=== PATIENT | female | born 1990 | race Caucasian/White ===

== ENCOUNTER 2017-07-26 07:52 | Emergency (ER) | payer BC ==
[2017-07-26 07:58] VITALS: BP 128/82
--- NOTE | 2017-07-26 08:46 | UC ---
Throat Pain/Nasal Antione HPI - HPI Summary HPI Summary: uri symptoms for 2 weeks, today awoke with sore throat, has had some urinary frequency a few days ago and has some flank discomfort with a history of renal colic-- - History of Current Complaint Hx Obtained From: Patient Hx Last Menstrual Period: current ?: No Onset/Duration: Gradual Onset, Lasting Days, Worse Since - today had a sore throat Severity: Moderate Pain Intensity: 5 Pain Scale Used: 0-10 Numeric Cough: None <America Grant - Last Filed: 07/26/17 08:40> <Silva Herrmann - Last Filed: 07/26/17 09:08> - History of Current Complaint Chief Complaint: UCRespiratory Stated Complaint: SORE THROAT, AND HEADACHE Time Seen by Provider: 07/26/17 08:39 - Allergies/Home Medications Allergies/Adverse Reactions: Allergies Allergy/AdvReac Type Severity Reaction Status Date / Time No Known Allergies Allergy Verified 07/14/16 11:51 PMH/Surg Hx/FS Hx/Imm Hx Previously Healthy: No Endocrine History: Hypothyroidism GI/ History: Kidney Stones - Surgical History Surgical History: None - Family History Known Family History: Positive: Diabetes - father, grandfather Negative: Hypertension - Social History Occupation: Employed Full-time Lives: With Family Alcohol Use: Occasionally Substance Use Type: None Smoking Status (MU): Never Smoked Tobacco Have You Smoked in the Last Year: No <America Grant - Last Filed: 07/26/17 08:40> Review of Systems Constitutional: Negative Skin: Negative Eyes: Negative ENT: Sore Throat Respiratory: Cough Cardiovascular: Negative Gastrointestinal: Negative Genitourinary: Frequency - now resolved, Other - some left flank pain Motor: Negative Neurovascular: Negative Musculoskeletal: Negative Neurological: Negative Psychological: Negative Is Patient Immunocompromised?: No All Other Systems Reviewed And Are Negative: Yes <America Grant - Last Filed: 07/26/17 08:40> Physical Exam Triage Information Reviewed: Yes Appearance: Well-Appearing, No Pain Distress, Well-Nourished Vital Signs: Initial Vital Signs Temp 97.8 F 07/26/17 07:54 Pulse 102 07/26/17 07:54 Resp 18 07/26/17 07:54 BP 128/82 07/26/17 07:54 Pulse Ox 98 07/26/17 07:54 Vital Signs Reviewed: Yes Eye Exam: Normal Eyes: Positive: Conjunctiva Clear ENT Exam: Normal ENT: Positive: Normal ENT inspection, Hearing grossly normal, Pharynx normal, TMs normal, Uvula midline. Negative: Nasal congestion, Nasal drainage, Tonsillar swelling, Tonsillar exudate, Muffled voice, Hoarse voice, Sinus tenderness Dental Exam: Normal Neck exam: Normal Neck: Positive: Supple, Nontender, No Lymphadenopathy Respiratory Exam: Normal Respiratory: Positive: Chest non-tender, Lungs clear, Normal breath sounds, No respiratory distress, No accessory muscle use Cardiovascular Exam: Normal Cardiovascular: Positive: RRR, No Murmur, Pulses Normal, Brisk Capillary Refill Abdominal Exam: Normal Abdomen Description: Positive: Nontender, No Organomegaly, Soft, CVA Tenderness (L) Bowel Sounds: Positive: Present Musculoskeletal Exam: Normal Musculoskeletal: Positive: Strength Intact, ROM Intact, No Edema Neurological Exam: Normal Neurological: Positive: Alert, Muscle Tone Normal Psychological Exam: Normal Psychological: Positive: Normal Response To Family Skin Exam: Normal <America Grnat - Last Filed: 07/26/17 08:40> Vital Signs: Initial Vital Signs Temp 97.8 F 07/26/17 07:54 Pulse 102 07/26/17 07:54 Resp 18 07/26/17 07:54 BP 128/82 07/26/17 07:54 Pulse Ox 98 07/26/17 07:54 <Silva Herrmann - Last Filed: 07/26/17 09:08> Diagnostics - Laboratory Diagnostic Studies Completed/Ordered: ua-trace leukoesterace +3 blood ( currently having menses) strep (-) <America Grant - Last Filed: 07/26/17 08:40> Throat Pain/Nasal Course/Dx - Course Course Of Treatment: patient understands we cannot differentiate bllod in urine from renal colic or menses with out a straight cath specimen and ct---patient refuses both perfers to increase fluids and follow with pcp or return for increase pain fever chills nausea vomting, RST (-) tylenol ibuprofen for pain - Differential Dx/Diagnosis Provider Diagnoses: Hematuria, Viral URI <America Grant - Last Filed: 07/26/17 08:40> Discharge <America Grant - Last Filed: 07/26/17 08:40> <Silva Herrmann - Last Filed: 07/26/17 09:08> - Discharge Plan Condition: Stable Disposition: HOME Patient Education Materials: Renal Colic (ED), Viral Syndrome (ED) Referrals: Carlene Georges MD [Primary Care Provider] - 2 Days Attestation Statement User Type: Provider - I was available for consult. This patient was seen by the VEE. The patient was not presented to, seen by, or examined by me. -El <Silva Herrmann - Last Filed: 07/26/17 09:08>
== END 2017-07-26 09:08 | disposition home or self-care (01) ==
LOC: UCEAST 07:52
DX: R31.9 Hematuria, unspecified (principal); J06.9 Acute upper respiratory infection, unspecified
CPT/HCPCS: 81003; 87086; 87651; 99211; G0463

== ENCOUNTER 2019-05-01 10:31 | Emergency (ER) | payer BC ==
--- OUTSIDE RECORDS SUMMARY | 2019-05-01 10:38 | XMS REPORT | Continuity of Care Document ---
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 Payers Date Identification Numbers Payment Provider Subscriber Effective: Policy Number: [id number] [facility] Paula Hanna 2014 PayID: [id number] [address] [address] [place] [address] Problems Active Problems Provider Date Generalized anxiety disorder Eduarda Perrin PA-C Onset: 05/08/2015 Depressive disorder Eduarda Perrin PA-C Onset: 05/08/2015 Major depressive disorder, single Eduarda Perrin PA-C Onset: 05/23/2015 episode, unspecified Chronic interstitial cystitis Antonia Mccallum, [facility]- Onset: 05/30/2016 Abnormal cervical Papanicolaou smear Lelo Russo MD Onset: 05/30/2016 Hypothyroidism Carlene Georges MD Onset: 04/05/2019 Family History Date Family Member(s) Observation Comments Father Colitis Father Diabetes Mother Hypertension First Brother No Current Problems Paternal Grandfather Diabetes Paternal Grandfather due to Skin Cancer () Paternal Grandfather [place] Paternal Grandfather Dementia Paternal Grandmother Heart Disease Maternal Grandfather Diabetes Maternal Grandfather due to Cancer () Maternal Grandfather AK Maternal Grandfather Dementia Maternal Grandmother Breast Cancer Maternal Grandmother Hypertension Maternal Grandmother Gastroesophageal Reflux Disease (GERD) Social History Type Date Description Comments Sex Unknown Education Highest Level Completed, Master's Degree Marital Status Legal Status: Lives With Spouse 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 04/18/2015 20mg by mouth MD José Manuel Capsules F32.89 Florajen Acidophilus Capsules 2 po qd Unknown History Medications Erythromycin apply 1/2 inch 3.500gm Rashid Humphreys 01/15/2019 - 5mg/GM to right eye MD Hal 01/22/2019 Ointment four times a day x 7 days Synthroid 1 by mouth 90tabs E03.8 Carlene Barry 09/05/2018 - 88mcg Tablets every day MD José Manuel 11/02/2018 Doxycycline Hyclate 1 by mouth 20caps N61.0 Chip Reed 08/26/2018 - twice a day x DO Ani 09/05/2018 100mg Capsules 10 days Dicloxacillin Sodium 1 capsule four 40caps N61.0 Carlene Barry 08/12/2018 - times a day x MD José Manuel 08/22/2018 500mg Capsules 10 days Augmentin one by mouth 20tabs N61.0 Rashid Humphreys 07/27/2018 - 875-125mg twice a day x MD Hal 08/06/2018 Tablets 10 days Diflucan 1 by mouth at 2tabs N61.0 Rashid Humphreys 07/27/2018 - 150mg Tablets onset,january MD Hal 07/29/2018 repeat in 3 days as needed Macrodantin 1 by mouth two 20caps Randy Reed 06/20/2016 - 100mg times a day x MD Daily 06/30/2016 Capsules 10 days Ferrous Sulfate 1 by mouth otc D64.9 Lelo Russo, 08/15/2015 - every day 06/01/2016 325(65Fe) mg Tablets Cipro 1 by mouth 14tabs R35.0 Lelo Russo 07/09/2015 - 500mg Tablets twice a day x 7 07/16/2015 days Fluoxetine HCL 1 by mouth 90caps F41.1 Carlene Barry 05/08/2015 - 10mg every day along MD José Manuel 04/05/2019 Capsules with 20mg capsule to equal 30mg daily F32.89 Fluoxetine HCL 1 by mouth 30caps 300.02 Rei Cordova 04/03/2015 - 10mg every day MD YAHAIRA 04/18/2015 Capsules Xanax 1-2 by mouth 60tabs F41.1 Lelo Russo 04/03/2015 - 0.25mg Tablets once a day as 06/01/2016 needed Synthroid 1 by mouth 30tabs E03.8 Lelo Russo, - 50mcg Tablets every day 06/01/2016 Fluconazole 1 po weekly 616.10 Lilliana Hall PA - 200mg Tablets 04/03/2015 Phenazopyridine HCL as needed for 595.1 Lilliana Hall PA - 200mg flares 06/01/2016 Tablets Vitamin D 4 by mouth Unknown - 1000Unit Tablets every day 06/01/2016 Multivitamins 1 by mouth D64.9 Unknown - Capsules every day 06/01/2016 Synthroid 1 by mouth 90tabs E03.8 Carlene Almanza. - 100mcg Tablets every day MD José Manuel 09/05/2018 Vitamins Plus otc Unknown - Low Iron 03/23/2017 27-1mg Tablets Florajen Acidophilus Unknown - 06/01/2016 Capsules Immunizations CPT Code Status Date Vaccine Lot # [id number] Given 02/15/2018 Adacel - Tdap [facility] [id number] 09/14 71186 Refused 09/02/2018 Flu, Multi-Dose Vial W/Preservative (Age 3 Yrs And Older)Quad 0.5 Vital Signs Date Vital Result Comment 04/05/2019 11:30am BP Systolic 110 mmHg BP Diastolic 68 mmHg Heart Rate 66 /min Body Temperature 97.8 F Respiratory Rate 14 /min Weight 148.00 lb Weight 67.133 kg Height 65.5 inches 5'5.50" BMI (Body Mass Index) 24.3 kg/m2 01/15/2019 11:43am BP Systolic 106 mmHg BP Diastolic 60 mmHg Heart Rate 84 /min Body Temperature 98.5 F Respiratory Rate 16 /min Weight 147.00 lb Weight 66.679 kg Height 65.5 inches 5'5.50" BMI (Body Mass Index) 24.1 kg/m2 09/02/2018 2:58pm BP Systolic 116 mmHg BP Diastolic 66 mmHg Heart Rate 74 /min Body Temperature 98.7 F Respiratory Rate 14 /min Weight 155.25 lb Weight 70.421 kg Height 65.5 inches 5'5.50" BMI (Body Mass Index) 25.4 kg/m2 O2 % BldC Oximetry 99 % 07/27/2018 2:38pm BP Systolic 100 mmHg BP Diastolic 70 mmHg Heart Rate 11 /min Body Temperature 98.3 F Respiratory Rate 12 /min Weight 163.00 lb Weight 73.937 kg Height 65.5 inches 5'5.50" BMI (Body Mass Index) 26.7 kg/m2 07/25/2018 9:25am BP Systolic 98 mmHg BP Diastolic 68 mmHg Heart Rate 76 /min Body Temperature 98.6 F Respiratory Rate 14 /min Weight 165.00 lb Weight 74.844 kg Height 65.5 inches 5'5.50" BMI (Body Mass Index) 27.0 kg/m2 11/01/2017 1:59pm BP Systolic 122 mmHg BP Diastolic 68 mmHg Heart Rate 72 /min Body Temperature 97.7 F Respiratory Rate 16 /min Weight 152.00 lb Weight 68.947 kg 03/23/2017 5:59pm BP Systolic 110 mmHg BP Diastolic 72 mmHg Heart Rate 76 /min Body Temperature 98.2 F Respiratory Rate 14 /min Weight 152.00 lb Weight 68.947 kg Height 65.5 inches 5'5.50" BMI (Body Mass Index) 24.9 kg/m2 06/20/2016 12:18pm BP Systolic 118 mmHg BP Diastolic 64 mmHg Heart Rate 88 /min Body Temperature 98.0 F Respiratory Rate 20 /min Weight 173.00 lb Weight 78.473 kg Height 65.5 inches 5'5.50" BMI (Body Mass Index) 28.3 kg/m2 06/01/2016 6:49pm BP Systolic 118 mmHg BP Diastolic 80 mmHg Heart Rate 82 /min Body Temperature 97.7 F Respiratory Rate 16 /min Weight 170.00 lb Weight 77.112 kg Height 65.5 inches 5'5.50" BMI (Body Mass Index) 27.9 kg/m2 07/09/2015 6:53pm BP Systolic 116 mmHg BP Diastolic 70 mmHg Heart Rate 82 /min Body Temperature 98.7 F Respiratory Rate 16 /min Weight 133.00 lb Weight 60.329 kg Height 65.5 inches 5'5.50" BMI (Body Mass Index) 21.8 kg/m2 05/23/2015 7:57pm BP Systolic 102 mmHg BP Diastolic 80 mmHg Heart Rate 80 /min Body Temperature 98.1 F Respiratory Rate 14 /min Weight 129.00 lb Weight 58.514 kg Height 65.5 inches 5'5.50" BMI (Body Mass Index) 21.1 kg/m2 05/08/2015 7:25pm BP Systolic 100 mmHg BP Diastolic 62 mmHg Heart Rate 76 /min Body Temperature 97.7 F Respiratory Rate 14 /min Weight 129.00 lb Weight 58.514 kg Height 65.5 inches 5'5.50" BMI (Body Mass Index) 21.1 kg/m2 04/18/2015 8:03pm BP Systolic 100 mmHg BP Diastolic 80 mmHg Heart Rate 72 /min Body Temperature 98.3 F Respiratory Rate 18 /min Weight 123.00 lb Weight 55.793 kg Height 65.5 inches 5'5.50" BMI (Body Mass Index) 20.2 kg/m2 04/11/2015 8:08pm BP Systolic 104 mmHg BP Diastolic 80 mmHg Heart Rate 70 /min Body Temperature 98.1 F Respiratory Rate 12 /min Weight 120.00 lb Weight 54.432 kg Height 65.5 inches 5'5.50" BMI (Body Mass Index) 19.7 kg/m2 04/03/2015 3:32pm BP Systolic 122 mmHg BP Diastolic 80 mmHg Heart Rate 68 /min Body Temperature 98.0 F Respiratory Rate 12 /min Weight 122.00 lb Weight 55.339 kg Height 65.5 inches 5'5.50" BMI (Body Mass Index) 20.0 kg/m2 11/07/2014 2:37pm BP Systolic 100 mmHg BP Diastolic 60 mmHg Heart Rate 76 /min Body Temperature 98.2 F Respiratory Rate 12 /min Weight 125.00 lb Weight 56.700 kg Height 65.5 inches 5'5.50" BMI (Body Mass Index) 20.5 kg/m2 10/29/2014 9:02am BP Systolic 102 mmHg BP Diastolic 70 mmHg Heart Rate 60 /min Body Temperature 98.2 F Respiratory Rate 14 /min Weight 126.00 lb Weight 57.154 kg Height 65.5 inches 5'5.50" BMI (Body Mass Index) 20.6 kg/m2 Results Test Date Facility Test Result H/L Range Note Laboratory test finding 04/05/2019 [facility] TSH 2.211 uIU/mL 0.350- 4.940 CBC/Automated 04/05/2019 [facility] WBC 5.28 k/uL 4.60-10.20 Differential % Neut 49.3 % 37.0-80.0 Abs Neut 2.60 2.00-7.50 % Lymphs 31.7 % 10.0-50.0 Abs Lymphs 1.67 K/UL 1.20-4.80 % Monos 12.60 % High 0.00-12.00 Abs Monos 0.665 0.000-0.900 % Eos 4.37 % 0.00-7.00 Abs Eos 0.231 0.000-0.700 % Baso 2.07 % 0.00-4.00 Abs Basos 0.109 0.000-0.200 RBC 4.75 m/uL 4.04-6.13 Hemoglobin 11.3 g/dL Low 12.2-18.1 Hematocrit 35.2 % Low 37.7-47.0 MCV 74.1 Indices con <SEE NOTE> fL Low 80.0-97.0 1 MCH 23.8 pg Low 27.0-31.2 MCHC 32.1 g/dL 31.8-35.4 RDW 14.8 % 11.6-14.8 Platelet 328 K/uL 142-424 MPV 6.0 fL 0.0-99.9 Comprehensive Metabolic 04/05/2019 [facility] Glucose 81.00 mg/dL 70.00- 110.00 Panel Urea Nitrogen 16 mg/dL 7-19 Creatinine 0.7 mg/dL 0.6-1.1 GFR 97.40 mL/min 2 Sodium 136 mmol/L 136-145 Potassium 4.5 mmol/L 3.5-5.1 Chloride 106 mmol/L 98-107 Total Protein 7.5 g/dL 6.4-8.3 Alb P 4.00 g/dL 3.30-5.00 Alanine Aminotransferase 9 U/L 0-55 Aspartate Aminotransferase 15 U/L 5-34 Alkaline Phosphatase 90 U/L 40-150 Carbon Dioxide 22.00 mmol/L 22.00-31.00 Albumin/Globulin 1.14 Ratio Osmolality 282.21 275.00-295.00 Calcium 9.20 mg/dL 8.90-10.40 Total Bilirubin 0.4 mg/dL 0.2-1.2 Globulin 3.50 2.30-4.20 BUN/Creatinine 21.62 Ratio High 10.00-20.00 Laboratory test finding 12/13/2018 [facility] TSH 1.418 uIU/mL 0.350- 4.940 CBC/Automated Differential 10/21/2018 [facility] WBC 6.46 k/uL 4.60- 10.20 Alison 3.80 2.00-7.50 %N 58.8 % 37.0-80.0 Lym 1.55 K/UL 1.20-4.80 %L 24.0 % 10.0-50.0 Refugio 0.635 0.000-0.900 %M 9.83 % 0.00-12.00 Eos 0.372 0.000-0.700 %E 5.76 % 0.00-7.00 Baso 0.099 0.000-0.200 %B 1.53 % 0.00-4.00 RBC 5.30 m/uL 4.04-6.13 Hemoglobin 11.7 g/dL Low 12.2-18.1 Hematocrit 39.1 % 37.7-47.0 MCV 73.7 Indices con <SEE NOTE> fl Low 80.0-97.0 3 MCH 22.1 pg Low 27.0-31.2 MCHC 29.9 g/dL Low 31.8-35.4 RDW 18.2 % High 11.6-14.8 PLT 385 K/uL 142-424 MPV 6.5 fL 0.0-99.9 Laboratory test finding 10/21/2018 [facility] TSH 0.105 uIU/mL Low 0.350- 4.940 Laboratory test finding 09/02/2018 [facility] TSH 0.069 uIU/mL Low 0.350- 4.940 CBC/Automated Differential 09/02/2018 [facility] WBC 6.50 k/uL 4.60- 10.20 Alison 3.94 2.00-7.50 %N 60.6 % 37.0-80.0 Lym 1.56 K/UL 1.20-4.80 %L 24.0 % 10.0-50.0 Refugio 0.598 0.000-0.900 %M 9.20 % 0.00-12.00 Eos 0.317 0.000-0.700 %E 4.87 % 0.00-7.00 Baso 0.089 0.000-0.200 %B 1.36 % 0.00-4.00 RBC 4.47 m/uL 4.04-6.13 Hemoglobin 10.0 g/dL Low 12.2-18.1 Hematocrit 33.0 % Low 37.7-47.0 MCV 73.8 fl Low 80.0-97.0 MCH 22.4 pg Low 27.0-31.2 MCHC 30.4 g/dL Low 31.8-35.4 RDW 15.6 % High 11.6-14.8 PLT 390 K/uL 142-424 MPV 6.3 fL 0.0-99.9 Comprehensive Metabolic 09/02/2018 [facility] Glucose 94.00 mg/dL 70.00- 110.00 Panel Urea Nitrogen 16 mg/dL 7-19 CreaC 0.8 mg/dL 0.6-1.1 GFR 96.28 mL/min 4 Na-C 141 mmol/L 136-145 K-C 4.1 mmol/L 3.5-5.1 Cl-C 109 mmol/L High 98-107 Total Protein 7.3 g/dL 6.4-8.3 Alb P 3.70 g/dL 3.30-5.00 Alanine Aminotransferase 15 U/L 0-55 Aspartate Aminotransferase 17 U/L 5-34 Alkaline Phosphatase 99 U/L 40-150 Carbon Dioxide 21.00 mmol/L Low 22.00-31.00 BUN/CR 21.33 High 10.00-20.00 A/G 2.03 1.46-2.46 Osmo 292.94 275.00-295.00 CaC 9.30 mg/dL 8.90-10.40 Total Bilirubin 0.3 mg/dL 0.2-1.2 Glob 2 3.60 2.30-4.20 Laboratory test finding 11/08/2017 [facility] Progesterone 23.90 ng/mL 5 Laboratory test finding 11/01/2017 [facility] FT4_6 1.05 ng/dL 0.70- 1.48 TSH 1.941 uIU/mL 0.350-4.940 B-hCG 11044.93 mIU/mL Comprehensive Metabolic 03/23/2017 [facility] Glucose 81.00 mg/dL 70.00- 110.00 Panel Urea Nitrogen 15 mg/dL 7-19 CreaC 0.8 mg/dL 0.6-1.1 GFR 88.98 mL/min 6 Na-C 138 mmol/L 136-145 K-C 4.3 mmol/L 3.5-5.1 Cl-C 104 mmol/L 98-107 Total Protein 8.1 g/dL 6.4-8.3 Alb P 3.90 g/dL 3.30-5.00 Alanine Aminotransferase 11 U/L 0-55 Aspartate Aminotransferase 15 U/L 5-34 Alkaline Phosphatase 109 U/L 40-150 Carbon Dioxide 23.00 mmol/L 22.00-31.00 BUN/CR 18.52 10.00-20.00 A/G 1.93 1.46-2.46 Osmo 285.86 275.00-295.00 CaC 9.50 mg/dL 8.90-10.40 Total Bilirubin 0.3 mg/dL 0.2-1.2 Glob 2 4.20 2.30-4.20 Laboratory test finding 03/23/2017 [facility] TSH 1.425 uIU/mL 0.350- 4.940 Urinalysis/Microscopic 06/20/2016 [facility] Color Yellow Appear Clear Clear Leuk Trace Negative Nitrite Negative Negative Urobil 0.2 E.U./dL 0.2-1.0 Protein Negative Negative pH 7.0 5.0-8.5 Blood 2+ Abnormal Negative S.G. 1.015 1.005-1.025 Ketone Negative Negative Bili Negative Negative Glu Negative Negative U-WBC 6-10 Abnormal 0-2 U-RBC 10-20 0-2 Bacteria 1+ Abnormal Negative Epi Cells 10-20 Abnormal Laboratory test finding 06/20/2016 [facility] Urine Culture Comment 7 Laboratory test finding 07/09/2015 [facility] Urine Culture Comment 8 , 9 Urinalysis/Microscopic 07/09/2015 [facility] Color [place] Appear Clear Clear Leuk 1+ Abnormal Negative Nitrite Positive Negative Urobil 1.0 E.U./dL 0.2-1.0 Protein Trace Abnormal Negative pH 7.0 5.0-8.5 Blood 1+ Abnormal Negative S.G. 1.010 1.005-1.025 Ketone Negative Negative Bili Negative Negative Glu Trace Abnormal Negative U-WBC 20-40 0-2 Bacteria 2+ Abnormal Negative Epi Cells 3-5 Abnormal Laboratory test finding 07/09/2015 [facility] HCG-urine Negative Negative Laboratory test finding 07/09/2015 [facility] Iron 89.00 g/dL 25.00- 156.00 Iron Binding Capacity 353 g/dL 250-450 10 Ferritin 17.3 ng/ml 10.0-291.0 11 Vitamin B12 Arch 563.00 pg/mL 213.00-816.00 Folic Acid 11.5 ng/ml 12 Basic Metabolic Panel 07/09/2015 [facility] Glucose 80.00 mg/dL 70.00- 110.00 Na-C 135 mmol/L Low 136-145 K-C 4.3 mmol/L 3.5-5.1 Cl-C 103 mmol/L 98-107 Carbon Dioxide 25.00 mmol/L 22.00-31.00 Urea Nitrogen 10 mg/dL 7-19 GFR 112.14 mL/min 13 CreaC 0.7 mg/dL 0.6-1.1 BUN/CR 14.93 10.00-20.00 Osmo 278.02 275.00-295.00 CaC 9.00 mg/dL 8.90-10.40 CBC/Automated Differential 07/09/2015 [facility] WBC 7.48 k/uL 4.60- 10.20 Alison 4.74 2.00-7.50 %N 63.4 % 37.0-80.0 Lym 1.85 K/UL 1.20-4.80 %L 24.7 % 10.0-50.0 Refugio 0.529 0.000-0.900 %M 7.07 % 0.00-12.00 Eos 0.267 0.000-0.700 %E 3.57 % 0.00-7.00 Baso 0.094 0.000-0.200 %B 1.26 % 0.00-4.00 RBC 4.18 m/uL 4.04-6.13 Hemoglobin 11.8 g/dL Low 12.2-18.1 Hematocrit 36.2 % Low 37.7-47.0 MCV 86.6 fl 80.0-97.0 MCH 28.2 pg 27.0-31.2 MCHC 32.6 g/dL 31.8-35.4 RDW 12.4 % 11.6-14.8 PLT 267 K/uL 142-424 MPV 5.8 fL 0.0-99.9 TSH+Free T4 07/09/2015 [facility] TSH 2.879 uIU/mL 0.350-4.940 FT4_6 0.97 ng/dL 0.70-1.48 Laboratory test 11/07/2014 [facility] Urine Culture No growth. 14 finding CBC/Automated 10/29/2014 [facility] WBC 6.23 k/uL 4.60-10.20 15 Differential Alison 4.48 2.00-7.50 %N 71.8 % 37.0-80.0 Lym 1.09 K/UL Low 1.20-4.80 %L 17.4 % 10.0-50.0 Refugio 0.498 0.000-0.900 %M 7.99 % 0.00-12.00 Eos 0.105 0.000-0.700 %E 1.68 % 0.00-7.00 Baso 0.065 0.000-0.200 %B 1.04 % 0.00-4.00 RBC 4.27 m/uL 4.04-6.13 Hemoglobin 12.4 g/dL 12.2-18.1 Hematocrit 36.9 % Low 37.7-47.0 MCV 86.4 fl 80.0-97.0 MCH 29.0 pg 27.0-31.2 MCHC 33.6 g/dL 31.8-35.4 RDW 12.0 % 11.6-14.8 PLT 248 K/uL 142-424 MPV 5.7 fL 0.0-99.9 Comprehensive Metabolic 10/29/2014 [facility] Glucose 74.00 mg/dL 70.00- 110.00 Panel Urea Nitrogen 10 mg/dL 7-19 CreaC 0.7 mg/dL 0.6-1.1 GFR 108.97 mL/min 16 Na-C 137 mmol/L 136-145 K-C 4.0 mmol/L 3.5-5.1 Cl-C 106 mmol/L 98-107 Total Protein 7.4 g/dL 6.4-8.3 Alb P 4.00 g/dL 3.30-5.00 Alanine Aminotransferase 11 U/L 0-55 Aspartate Aminotransferase 15 U/L 5-34 Alkaline Phosphatase 64 U/L 40-150 Carbon Dioxide 21.00 mmol/L Low 22.00-31.00 BUN/CR 14.49 10.00-20.00 A/G 2.18 1.46-2.46 Glob 3.40 2.30-3.50 Osmo 281.68 275.00-295.00 CaC 8.80 mg/dL Low 8.90-10.40 Total Bilirubin 1.0 mg/dL 0.2-1.2 Lipid Panel 10/29/2014 [facility] Cholesterol 172 mg/dL 112-200 17 Triglyceride 48 mg/dL 1-200 18 HDL 69 mg/dL 30-85 19 Chol/HDL 2.49 Low 4.00-6.70 LDL 83.00 mg/dL 20.00-130.00 20 NHDL 103.00 mg/dL High 0.00-100.00 21 TSH+Free T4 10/29/2014 [facility] TSH 2.305 uIU/mL 0.350-4.940 FT4_6 1.05 ng/dL 0.70-1.48 Anti Thyroid 10/29/2014 [facility] Thyroglobulin Ab <1.0 IU/mL 0.0-0.9 22 Antibodies Anti-Microsomal 11 IU/mL 0-34 23 1 74.1 Indices consistent with previous results 2 NORMAL FUNCTION OR MILD RENAL DISEASE:>60 ml/min ADVANCED RENAL DISEASE:15-59 ml/min RENAL FAILURE:<15 ml/min 3 73.7 Indices consistent with previous results 4 NORMAL FUNCTION OR MILD RENAL DISEASE:>60 ml/min ADVANCED RENAL DISEASE:15-59 ml/min RENAL FAILURE:<15 ml/min 5 PROGESTERONE REFERENCE RANGE: MALE <1.97 NG/ML FEMALE MENSTRUATING FOLLICULAR 0.21 - 1.70 NG/ML LUTEAL 2.25 - 24.20 NG/ML MID-LUTEAL 8.76 - 21.60 NG/ML POSTMENOPAUSAL < 0.90 NG/ML 1ST TRIMESTER 11.40 - 41.00 NG/ML 2ND TRIMESTER 13.80 - 156.00 NG/ML 3RD TRIMESTER >51.40 NG/ML Unless otherwise specified, testing [place] [address] 6 NORMAL FUNCTION OR MILD RENAL DISEASE:>60 ml/min ADVANCED RENAL DISEASE:15-59 ml/min RENAL FAILURE:<15 ml/min 7 SPECIMEN DESCRIPTION MIDSTREAM URINE,CLEAN CATCH CULTURE RESULTS 25,000 CFU/ML LACTOBACILLUS SPECIES NOTE: LACTOBACILLI USUALLY REPRESENT NORMAL UROGENITAL JELLY AND ARE A VERY RARE CAUSE OF A UTI. LABORATORY METHODS ARE NOT CURRENTLY AVAILABLE FOR PERFORMING ANTIBIOTIC SUSCEPTIBILITY TESTING FOR THIS ORGANISM. REPORT STATUS FINAL 06/22/2016 Unless otherwise specified, testing performed by [facility] [place] [address] 8 URINE DIP RESULTS: RUSS- unable to read due to patient taking AZO NIT- URO- PRO- pH- BLO- SG- KET- HORTENCIA- GLU- 9 SPECIMEN DESCRIPTION MIDSTREAM URINE,CLEAN CATCH CULTURE RESULTS >100,000 CFU/ML ESCHERICHIA COLI THE URINE COLLECTION TUBE WAS NOT FILLED TO THE MINIMUM LINE. THE SPECIMEN WAS CULTURED, BUT THE PRESERVATIVE MAY BE INHIBITORY WHEN LESS THAN THE MINIMUM FILL OF URINE IS OBTAINED. REPORT STATUS FINAL 07/11/2015 ORGANISM ESCHERICHIA COLI METHOD RACHEL AMOXICILLIN/CLAVULANIC AC <=2/1 SUSCEPTIBLE AMPICILLIN 4 SUSCEPTIBLE AZTREONAM <=1 SUSCEPTIBLE CEFAZOLIN <=4 SUSCEPTIBLE CEFEPIME <=1 SUSCEPTIBLE CEFTRIAXONE <=1 SUSCEPTIBLE CIPROFLOXACIN <=0.25 SUSCEPTIBLE GENTAMICIN <=1 SUSCEPTIBLE IMIPENEM <=0.25 SUSCEPTIBLE LEVOFLOXACIN 1 SUSCEPTIBLE NITROFURANTOIN <=16 SUSCEPTIBLE PIPERACILLIN/TAZOBACTAM <=4 SUSCEPTIBLE TETRACYCLINE <=1 SUSCEPTIBLE TRIMETH/SULFA <=1/19 SUSCEPTIBLE ERTAPENEM <=0.5 SUSCEPTIBLE Unless otherwise specified, testing performed by [facility] [place] [address] [address] [employer] [address] [place] [address] Mian Delatorre D.O. 11 [employer] [address] [place] [address] Mian Delatorre D.O. 12 Greater than or equal to 5.4 is normal. . 13 NORMAL FUNCTION OR MILD RENAL DISEASE:>60 ml/min ADVANCED RENAL DISEASE:15-59 ml/min RENAL FAILURE:<15 ml/min 14 [employer] [address] [place], [place] [id number] Keren Rubio M.D. 15 [employer] hours FASTING Fast[employer] hours FASTING Fast[employer] hours FASTING [employer] hours FASTING [employer] hours FASTING [employer] hours FASTING [employer] hours 16 NORMAL FUNCTION OR MILD RENAL DISEASE:>60 ml/min ADVANCED RENAL DISEASE:15-59 ml/min RENAL FAILURE:<15 ml/min 17 GOAL LESS THAN 200 18 GOAL LESS THAN 200 19 GOAL GREATER THAN 45 20 GOAL LESS THAN 100 21 GOAL LESS THAN 100 22 Low positive Thyroglobulin antibodies are seen in a portion of the asymptomatic populations. Antithyroglobulin antibodies measured by [employer] [address] [id number] Procedures Date Code Description Status 10/21/2015 [id number] Diabetic Foot Exam Completed 07/09/2015 80072 X-Ray Abdomen Single Ap View Completed Encounters Type Date Location Provider Dx Diagnosis Office Visit 04/05/2019 [address] Carlene Barry E03.9 Hypothyroidism, 10:45a MD José Manuel unspecified D64.9 Anemia, unspecified F41.1 Generalized anxiety disorder F32.89 Other specified depressive episodes E03.8 Other specified hypothyroidism Office Visit 01/15/2019 11:30a [address] A MAKAYLA Roberto H00.021 Hordeolum internum Side right upper eyelid Office Visit 09/02/2018 2:15p Main Office Carlene Barry E03.8 Other specified MD José Manuel hypothyroidism F41.1 Generalized anxiety disorder N61.0 Mastitis without abscess F32.89 Other specified depressive episodes Office Visit 07/27/2018 2:30p Main Office MAKAYLA Roberto N61.0 Mastitis without abscess N64.4 Mastodynia Office Visit 07/25/2018 9:15a Main Office MAKAYLA Roberto N64.4 Mastodynia Office Visit 11/01/2017 1:45p Main Office Myra Olvera F41.1 Generalized anxiety 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, 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-C disorder F33.1 Major depressive disorder, recurrent, moderate Z32.01 Encounter for test, result positive N91.1 Secondary amenorrhea E03.8 Other specified hypothyroidism E04.1 Nontoxic single thyroid nodule Office Visit 03/23/2017 6:00p Main Office Carlene Barry F41.1 Generalized anxiety MD José Manuel disorder E03.8 Other specified hypothyroidism Office Visit 06/20/2016 12:00p Main Office Antonia Langston R30.0 Dysuria Valorielally, 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-BC Office Visit 06/01/2016 6:30p Main Office Lelo Russo, F33.1 Major depressive MD disorder, recurrent, moderate Office Visit 07/09/2015 6:30p Main Office Lelo Russo, D64.9 Anemia, unspecified MD F33.1 Major depressive disorder, recurrent, moderate F41.1 Generalized anxiety disorder R35.0 Frequency of micturition R10.30 Lower abdominal pain, unspecified E03.8 Other specified hypothyroidism D64.9 Anemia, unspecified 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), unsp, unspecified foot Office Visit 05/23/2015 7:30p Main Office Eduarda Perrin, F41.1 Generalized anxiety PA-C disorder F32.9 Major depressive disorder, single episode, unspecified Office Visit 05/08/2015 7:00p Main Office Eduarda Perrin, 300.02 Anxiety Disorder PA-C Generalized 311 Depressive Disorder Not Elsewhere Spec Office Visit 04/18/2015 8:00p Main Office Eduarda Perrin, 300.02 Anxiety Disorder PA-C Generalized 311 Depressive Disorder Not Elsewhere Spec Office Visit 04/11/2015 7:30p Main Office Aydin Eduarda M, 300.02 Anxiety Disorder PA-C Generalized 311 Depressive Disorder Not Elsewhere Spec Office Visit 04/03/2015 3:30p Main Office Eduarda Perrin, 300.02 Anxiety Disorder PA-C Generalized Office Visit 11/07/2014 2:30p Main Office Antonia Langston 788.1 Dysuria [place], 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-BC 789.04 Pain Abdominal Left Lower Quadrant 595.1 Cystitis Chronic Interstitial Office Visit 10/29/2014 8:30a Main Office Lelo Russo MD 592.0 Calculus Of Kidney 616.10 Vaginitis & Vulvovaginitis Unspec 626.4 Irregular Menstrual Cycle 244.8 Hypothyroidism Other Spec 595.1 Cystitis Chronic Interstitial V77.91 Screening For Lipoid Disorders Plan of Treatment 04/05/2019 - Carlene eGorges MDE03.9 Hypothyroidism, unspecifiedComments: Will check thyroid function test today to make sure this is within range. Will refill medication based on lab results. Advised to take daily in the morning without any food or other vitamins/medications for the best absorption.D64.9 Anemia, unspecifiedComments:will check bloodwork and qjpqrhN26.1 Generalized anxiety disorderComments:see depression plan.F32.89 Other specified depressive episodesComments:DECREASE Fluoxetine to 20mg. Takes 6 weeks for the new dosage to take effect into your system. At the 6 week vanessa you should really be able to evaluate how you feel on a lower dose.If mood continues lashae stable/balanced then we can further decrease and go from there. If depression worsens, anxiety, agitation, irritability worsen please let us know. If you have any thoughts of suicide, call our office IMMEDIATELY AND TALK TO YOUR MOM OR SUPPORTIVE PERSON.Follow up:CONTACT OFFICE VIA PORTAL IN 6 WEEKS TO LET US KNOW HOW YOU ARE DOING.E03.8 Other specified hypothyroidismAllComments:Discussed her weight as she is concerned - advised to continue diet/exercise and will decrease fluoxetine as discussed
--- OUTSIDE RECORDS SUMMARY | 2019-05-01 10:39 | XMS REPORT | Continuity of Care Document ---
:1990 External Reference #:[id number] Author Name Carlene Georges MD Address [address] [place] [address] Care Team Providers Name Role Phone Carlene Georges MD Care Team Information Paralegal Assistant Unavailable Payers Date Identification Numbers Payment Provider Subscriber Effective: Policy Number: [id number] [facility] Paula Hanna 2014 PayID: [id number] [address] [address] [place] [address] Problems Active Problems Provider Date Generalized anxiety disorder Eduarda Perrin PA-C Onset: 05/08/2015 Depressive disorder Eduarda Perrin PA-C Onset: 05/08/2015 Major depressive disorder, single Eduarda Perrin PA-C Onset: 05/23/2015 episode, unspecified Chronic interstitial cystitis Antonia Mccallum, [facility] Onset: 05/30/2016 Abnormal cervical Papanicolaou smear Lelo Russo MD Onset: 05/30/2016 Family History Date Family Member(s) Observation Comments Father Colitis Father Diabetes Mother Hypertension First Brother No Current Problems Paternal Grandfather Diabetes Paternal Grandfather due to Skin Cancer () Paternal Grandfather AL Paternal Grandfather Dementia Paternal Grandmother Heart Disease Maternal Grandfather Diabetes Maternal Grandfather due to Cancer () Maternal Grandfather AL Maternal Grandfather Dementia Maternal Grandmother Breast Cancer Maternal Grandmother Hypertension Maternal Grandmother Gastroesophageal Reflux Disease (GERD) Social History Type Date Description Comments Sex Unknown Education Highest Level Completed, Master's Degree Marital Status Legal Status: Lives With Spouse 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 11/02/2018 75mcg Tablets day MD José Manuel Fluoxetine HCL take 1 capsule 90caps F41.1 Carlene A. 04/18/2015 20mg by mouth MD José Manuel Capsules F32.89 Florajen Acidophilus Capsules 2 po qd Unknown 0000 /0000 History Medications Erythromycin apply 1/2 inch 3.500gm Rashid Humphreys 01/15/2019 - 5mg/GM to right eye MD Hal 01/22/2019 Ointment four times a day x 7 days Synthroid 1 by mouth 90tabs E03.8 Carlene A. 09/05/2018 - 88mcg Tablets every day MD [...] 1 by mouth at 2tabs N61.0 Rashid P. 07/27/2018 - 150mg Tablets mylenejanuary MD Hal 07/29/2018 repeat in 3 days [...] Fluoxetine HCL 1 by mouth 90caps F41.1 Carelne Barry 05/08/2015 - 10mg every day along MD José Manuel 04/05/2019 Capsules with 20mg capsule to equal 30mg daily F32.89 Fluoxetine HCL 1 by mouth 30caps 300.02 Rei Cordova 04/03/2015 - 10mg every day MD YAHAIRA 04/18/2015 Capsules Xanax 1-2 by mouth 60tabs F41.1 Lelo Russo 04/03/2015 - 0.25mg Tablets once a day as 06/01/2016 needed Synthroid 1 by mouth 30tabs E03.8 Lelo Russo - 50mcg Tablets every day 06/01/2016 Fluconazole 1 po weekly 616.10 Lilliana Hall PA - 200mg Tablets 04/03/2015 Phenazopyridine HCL as needed for 595.1 Lilliana Hall PA - 200mg flares 06/01/2016 Tablets Vitamin D 4 by mouth Unknown - 1000Unit Tablets every day 06/01/2016 Multivitamins 1 by mouth D64.9 Unknown - Capsules every day 06/01/2016 Synthroid 1 by mouth 90tabs E03.8 Carlene Barry - 100mcg Tablets every day MD José Manuel 09/05/2018 Vitamins Plus otc Unknown - Low Iron 03/23/2017 27-1mg Tablets Florajen Acidophilus Unknown - 06/01/2016 Capsules Immunizations CPT Code Status Date Vaccine Lot # [id number] Given 02/15/2018 Adacel - Tdap [facility] 31984-946-27 09/14 70840 Refused 09/02/2018 Flu, Multi-Dose Vial W/Preservative (Age [...] Laboratory test finding 04/05/2019 [facility] TSH <pending> CBC/Automated Differential 04/05/2019 [facility] WBC 5.28 k/uL 4.60- 10.20 % Neut 49.3 % 37.0-80.0 Abs Neut [...] 328 K/uL 142-424 MPV 6.0 fL 0.0-99.9 Laboratory test finding 12/13/2018 [facility] TSH 1.418 uIU/mL 0.350- 4.940 CBC/Automated Differential 10/21/2018 [facility] WBC 6.46 k/uL 4.60- 10.20 Alison 3.80 2.00-7.50 %N 58.8 % 37.0-80.0 Lym 1.55 K/UL 1.20-4.80 %L 24.0 % 10.0-50.0 Haskell 0.635 0.000-0.900 %M 9.83 % 0.00-12.00 Eos 0.372 0.000-0.700 %E 5.76 % 0.00-7.00 Baso 0.099 0.000-0.200 %B 1.53 % 0.00-4.00 RBC 5.30 m/uL 4.04-6.13 Hemoglobin 11.7 g/dL Low 12.2-18.1 Hematocrit 39.1 % 37.7-47.0 MCV 73.7 Indices con <SEE NOTE> fl Low 80.0-97.0 2 MCH 22.1 pg Low 27.0-31.2 MCHC 29.9 [...] 1.56 K/UL 1.20-4.80 %L 24.0 % 10.0-50.0 Haskell 0.598 0.000-0.900 %M 9.20 % 0.00-12.00 Eos [...] 70.00- 110.00 Panel Urea Nitrogen 16 mg/dL 03-31 CreaC 0.8 mg/dL 0.6-1.1 GFR 96.28 mL/min 3 Na-C 141 mmol/L 136-145 K-C 4.1 mmol/L [...] finding 11/08/2017 [facility] Progesterone 23.90 ng/mL 4 Laboratory test finding 11/01/2017 [facility] FT4_6 1.05 ng/dL 0.70- 1.48 TSH 1.941 uIU/mL 0.350-4.940 B-hCG 14725.93 mIU/mL Comprehensive Metabolic 03/23/2017 [facility] Glucose 81.00 mg/dL 70.00- 110.00 Panel Urea Nitrogen 15 mg/dL 03-31 CreaC 0.8 mg/dL 0.6-1.1 GFR 88.98 mL/min 5 Na-C 138 mmol/L 136-145 K-C 4.3 mmol/L [...] 2 4.20 2.30-4.20 Laboratory test finding 03/23/2017 [facility] TSH 1.425 uIU/mL 0.350- 4.940 Urinalysis/Microscopic 06/20/2016 [facility] Color Yellow Appear Clear Clear Leuk Trace Negative Nitrite Negative Negative Urobil 0.2 E.U./dL 0.2-1.0 Protein Negative Negative pH 7.0 5.0-8.5 Blood 2+ Abnormal Negative S.G. 1.015 1.005-1.025 Ketone Negative Negative Bili Negative Negative Glu Negative Negative U-WBC 6-10 Abnormal 0-2 U-RBC 10-20 0-2 Bacteria 1+ Abnormal Negative Epi Cells 10-20 Abnormal Laboratory test finding 06/20/2016 [facility] Urine Culture Comment 6 Laboratory test finding 07/09/2015 [facility] Urine Culture Comment 7 , 8 Urinalysis/Microscopic 07/09/2015 [facility] Color Hall Appear Clear Clear Leuk 1+ Abnormal Negative [...] 156.00 Iron Binding Capacity 353 g/dL 250-450 9 Ferritin 17.3 ng/ml 10.0-291.0 10 Vitamin B12 Arch 563.00 pg/mL 213.00-816.00 Folic Acid 11.5 ng/ml 11 Basic Metabolic Panel 07/09/2015 [facility] Glucose 80.00 mg/dL 70.00- 110.00 Na-C 135 mmol/L Low 136-145 K-C 4.3 mmol/L 3.5-5.1 Cl-C 103 mmol/L 98-107 Carbon Dioxide 25.00 mmol/L 22.00-31.00 Urea Nitrogen 10 mg/dL 7-19 GFR 112.14 mL/min 12 CreaC 0.7 mg/dL 0.6-1.1 BUN/CR 14.93 10.00-20.00 Osmo 278.02 275.00-295.00 CaC 9.00 mg/dL 8.90-10.40 CBC/Automated Differential 07/09/2015 [facility] WBC 7.48 k/uL 4.60- 10.20 Alison 4.74 2.00-7.50 %N 63.4 % 37.0-80.0 Lym 1.85 K/UL 1.20-4.80 %L 24.7 % 10.0-50.0 Haskell 0.529 0.000-0.900 %M 7.07 % 0.00-12.00 Eos [...] 11/07/2014 [facility] Urine Culture No growth. 13 finding CBC/Automated 10/29/2014 [facility] WBC 6.23 k/uL 4.60-10.20 14 Differential Alison 4.48 2.00-7.50 %N 71.8 % 37.0-80.0 Lym 1.09 K/UL Low 1.20-4.80 %L 17.4 % 10.0-50.0 Haskell 0.498 0.000-0.900 %M 7.99 % 0.00-12.00 Eos [...] CreaC 0.7 mg/dL 0.6-1.1 GFR 108.97 mL/min 15 Na-C 137 mmol/L 136-145 K-C 4.0 mmol/L [...] 10/29/2014 [facility] Cholesterol 172 mg/dL 112-200 16 Triglyceride 48 mg/dL 1-200 17 HDL 69 mg/dL 30-85 18 Chol/HDL 2.49 Low 4.00-6.70 LDL 83.00 mg/dL 20.00-130.00 19 NHDL 103.00 mg/dL High 0.00-100.00 20 TSH+Free T4 10/29/2014 [facility] TSH 2.305 uIU/mL 0.350-4.940 FT4_6 1.05 ng/dL 0.70-1.48 Anti Thyroid 10/29/2014 [facility] Thyroglobulin Ab <1.0 IU/mL 0.0-0.9 21 Antibodies Anti-Microsomal 11 IU/mL 0-34 22 1 74.1 Indices consistent with previous results 2 73.7 Indices consistent with previous results 3 NORMAL FUNCTION OR MILD RENAL DISEASE:>60 ml/min ADVANCED RENAL DISEASE:15-59 ml/min RENAL FAILURE:<15 ml/min 4 PROGESTERONE REFERENCE RANGE: MALE <1.97 NG/ML FEMALE MENSTRUATING FOLLICULAR 0.21 - 1.70 NG/ML LUTEAL 2.25 - 24.20 NG/ML MID-LUTEAL 8.76 - 21.60 NG/ML POSTMENOPAUSAL < 0.90 NG/ML 1ST TRIMESTER 11.40 - 41.00 NG/ML 2ND TRIMESTER 13.80 - 156.00 NG/ML 3RD TRIMESTER >51.40 NG/ML Unless otherwise specified, testing performed by [facility] [address] [place] [id number] 5 NORMAL FUNCTION OR MILD RENAL DISEASE:>60 ml/min ADVANCED RENAL DISEASE:15-59 ml/min RENAL FAILURE:<15 ml/min 6 SPECIMEN DESCRIPTION MIDSTREAM URINE,CLEAN CATCH CULTURE RESULTS 25,000 CFU/ML LACTOBACILLUS SPECIES NOTE: LACTOBACILLI USUALLY REPRESENT NORMAL UROGENITAL JELLY AND ARE A VERY RARE CAUSE OF A UTI. LABORATORY METHODS ARE NOT CURRENTLY AVAILABLE FOR PERFORMING ANTIBIOTIC SUSCEPTIBILITY TESTING FOR THIS ORGANISM. REPORT STATUS FINAL 06/22/2016 Unless otherwise specified, testing performed by [facility] [address] [place] [id number] 7 URINE DIP RESULTS: RUSS- unable to read due to patient taking AZO NIT- URO- PRO- pH- BLO- SG- KET- HORTENCIA- GLU- 8 SPECIMEN DESCRIPTION MIDSTREAM URINE,CLEAN CATCH CULTURE RESULTS [...] Unless otherwise specified, testing performed by [facility] [address] [place] [id number] [address] [facility] [address] [place] [id number] Mian Delatorre D.O. [address] [facility] [address] [place] [address] [id number] Mian Delatorre D.O. 11 Greater than or equal to 5.4 is normal. . 12 NORMAL FUNCTION OR MILD RENAL DISEASE:>60 ml/min ADVANCED RENAL DISEASE:15-59 ml/min RENAL FAILURE:<15 ml/min [address] [facility] [address] [place] [address] [id number] Keren Rubio M.D. 14 [facility] [employer] FA[facility]ING [facility] hours FASTING [employer] hours FASTING [employer] hours FASTING [employer] hours FASTING [employer] hours FASTING [employer] hours 15 NORMAL FUNCTION OR MILD RENAL DISEASE:>60 ml/min ADVANCED RENAL DISEASE:15-59 ml/min RENAL FAILURE:<15 ml/min 16 GOAL LESS THAN 200 17 GOAL LESS THAN 200 18 GOAL GREATER THAN 45 19 GOAL LESS THAN 100 20 GOAL LESS THAN 100 21 Low positive Thyroglobulin antibodies are seen in a portion of the asymptomatic populations. 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 disorder F33.1 Major depressive disorder, recurrent, moderate Z32.01 Encounter for test, result positive N91.1 Secondary amenorrhea E03.8 Other specified hypothyroidism E04.1 Nontoxic single thyroid nodule Office Visit 03/23/2017 6:00p Main Office Carlene Barry F41.1 Generalized anxiety MD José Manuel disorder E03.8 Other specified hypothyroidism Office Visit 06/20/2016 12:00p Main Office Antonia Langston R30.0 Dysuria Xena [employer]ING [employer] 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 Office Visit 06/01/2016 6:30p Main Office Lelo Russo F33.1 Major depressive MD disorder, recurrent, moderate Office Visit 07/09/2015 6:30p Main Office Lelo Russo D64.9 Anemia, unspecified MD F33.1 Major depressive disorder, recurrent, moderate F41.1 Generalized anxiety disorder R35.0 Frequency of micturition R10.30 Lower abdominal pain, unspecified E03.8 Other specified hypothyroidism D64.9 Anemia, unspecified 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), unsp, unspecified foot Office Visit 05/23/2015 7:30p Main Office Eduarda Perrin F41.1 Generalized anxiety PA-C disorder F32.9 Major depressive disorder, single episode, unspecified Office Visit 05/08/2015 7:00p Main Office Eduarda Perrin, 300.02 Anxiety Disorder PA-C Generalized 311 Depressive Disorder Not Elsewhere Spec Office Visit 04/18/2015 8:00p Main Office Eduarda Perrin, 300.02 Anxiety Disorder PA-C Generalized 311 Depressive Disorder Not Elsewhere Spec Office Visit 04/11/2015 7:30p Main Office Eduarda Perrin, 300.02 Anxiety Disorder PA-C Generalized 311 Depressive Disorder Not Elsewhere Spec Office Visit 04/03/2015 3:30p Main Office Eduarda Perrin, 300.02 Anxiety Disorder PA-C Generalized Office Visit 11/07/2014 2:30p Main Office Antonia Langston 788.1 Dysuria Xena [facility]- 789.04 Pain Abdominal Left Lower Quadrant 595.1 Cystitis Chronic Interstitial Office Visit 10/29/2014 8:30a Main Office Lelo Russo MD 592.0 Calculus Of Kidney 616.10 Vaginitis & Vulvovaginitis Unspec 626.4 Irregular Menstrual Cycle 244.8 Hypothyroidism Other Spec 595.1 Cystitis Chronic Interstitial V77.91 Screening For Lipoid Disorders Plan of Treatment 04/05/2019 - Carlene Georges MDE03.9 Hypothyroidism, unspecifiedComments: Will check thyroid function test today to make sure this is within range. Will refill medication based on lab results. Advised to take daily in the morning without any food or other vitamins/medications for the best absorption.D64.9 Anemia, unspecifiedComments:will check bloodwork and ewjmztL92.1 Generalized anxiety disorderComments:see depression plan.F32.89 Other specified [...]
[2019-05-01 10:52] VITALS: BP 120/83
== END 2019-05-01 12:35 | disposition left against medical advice (07) ==
LOC: UCEAST 10:31
DX: Z53.8 Procedure and treatment not carried out for other reasons (principal)